=== PATIENT | female | born 1990 | race Caucasian/White ===

== ENCOUNTER 2018-03-27 10:05 | Observation (INO) | payer MEDICAID ==
[~2018-03-27] VITALS: Ht 154.9 cm; Wt 81.6 kg
[2018-03-27 10:09] VITALS: Ht 154.9 cm; Wt 81.6 kg
[2018-03-27 10:42] LABS: APPEARANCE HAZY (CLEAR); BACTERIA FEW /hpf (NONE SEEN); BILIRUBIN NEGATIVE (NEGATIVE); COLOR YELLOW (YELLOW); EPITHELIAL CELLS 0-5 /hpf (0-5); GLUCOSE NEGATIVE (NEGATIVE); KETONE NEGATIVE (NEGATIVE); MUCUS <1+ /lpf (NONE SEEN); NITRITE NEGATIVE (NEGATIVE); PROTEIN NEGATIVE (NEGATIVE); SPECIFIC GRAVITY 1.005 (1.005-1.020); UROBILINOGEN NORMAL (NORMAL); WHITE CELLS - URINE OCC /hpf (0-5)
[2018-03-27 10:49] LABS: HEMATOCRIT 38.2 % (36.0-48.0); LYMPHOCYTES 36.6 % (15-50); MCH 27.6 pg (26.0-34.0); MCV 81.1 fL (80.0-100.0); NEUTROPHILS 55.4 % (40-80); PLATELET COUNT 171 10x3/uL (130-400); RBC 4.71 10x6/uL (4.00-5.40); RDW 13.5 % (11.5-14.5); WBC 3.9 10x3/uL (4.8-10.8)
[2018-03-27 10:55] LABS: ALBUMIN 3.7 g/dL (3.4-5.0); ALKALINE PHOSPHATASE 54 U/L (46-116); ALT (SGPT) 21 U/L (10-68); BILIRUBIN - TOTAL 0.35 mg/dL (0.2-1.3); CALC OSMOLALITY 276 mosm/kg (275-300); CALCIUM 8.6 mg/dL (8.5-10.1); CARBON DIOXIDE 22.9 mmol/L (21.0-32.0); CHLORIDE - SERUM 105 mmol/L (98-107); CREATININE - SERUM 0.5 mg/dL (0.6-1.3); GLUCOSE 92 mg/dL (74-106); PROTEIN - SERUM 7.3 g/dL (6.4-8.2); SODIUM 140 mmol/L (136-145); UREA NITROGEN 8 mg/dL (7-18); eGFR NON AFRICAN AMERICAN > 90 mL/min (90-120)
[2018-03-27 10:57] LABS: POTASSIUM - SERUM 4.4 mmol/L (3.5-5.1)
[2018-03-27 11:21] LABS: HCG - QUANTITATIVE (MATERNAL) 2690 mIU/mL
--- NOTE | 2018-03-27 14:23 | NUR ---
RECEIVED PT FROM VIA WHEELCHAIR TO ROOM 1273. PT C/O N/V. EMESIS BASIN PROVIDED.
--- NOTE | 2018-03-27 14:25 | NUR ---
PT ASSISTED WITH CHANGING INTO GOWN. PT TO BED. VS OBTAINED. PT STATES LEFT TO CARE FOR CHILDREN. 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 STATES C/O ABDOMINAL PAIN OF "5" ON 0-10 PAIN SCALE. PERIPAD CHANGED WITH SMALL AMT OF DARK RED DISCHARGE NOTED. HRRR WITHOUT AUDIBLE MURMUR. BBS CLEAR. BS X 4. ABDOMEN SOFT. NEG HOMANS' SIGN. PPP. NO EDEMA NOTED TO EXTREMETIES. PIV OF LR INFUSING AT 150 ML/HR TO LEFT AC. SITE CLEAR. PT ORIENTED TO ROOM, BED, AND CALL LIGHT. SR UPX 2. CALL LIGHT IN REACH.
[2018-03-27 14:30] VITALS: BP 129/78
--- NOTE | 2018-03-27 15:31 | NUR ---
PT TO OR VIA WHEELCHAIR PER OR TRANSPORT STAFF.
--- NOTE | 2018-03-27 16:45 | NUR ---
DR ELIAS ON UNIT. SPEAKS WITH PATIENT'S FAMILY. ORDERS RECEIVED.
[2018-03-27 17:17] VITALS: BP 125/68
--- NOTE | 2018-03-27 17:17 | NUR ---
RECEIVED PT FROM VIA STRETCHER TO ROOM 1273. PT TRANSFERS ONTO BED PER SELF. VSS. PT AWAKE. HRRR WITHOUT AUDIBLE MURMUR. BBS CLEAR. BS X 4. ABDOMEN SOFT/NON-DISTENDED. SMALL SEROSANGUINOUS DISCHARGE NOTED ON CHUX. NEG HOMANS' SIGN. PPP. NO EDEMA NOTED TO BLE. PIV OF LR INFUSING AT KVO RATE. SITE CLEAR TO LEFT AC. PT STATES ABDOMINAL PAIN OF "7" ON 0-10 PAIN SCALE. SR UP X 2. CALL LIGHT IN REACH.
--- NOTE | 2018-03-27 17:25 | NUR ---
TORADOL 30 MG GIVEN SIVP OVER 2 MINUTES. PT INSTRUCTED ON MED. VERBALIZES UNDERSTANDING.
[2018-03-27 17:44] VITALS: BP 110/56
[2018-03-27] MEDS ORDERED: PRENAVITE1 TAB PO (17:44)
--- NOTE | 2018-03-27 18:00 | NUR ---
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 PT TOLERATING MEAL WITHOUT C/O NAUSEA. STATES PAIN IMPROVED. DISCHARGE INSTRUCTIONS GIVEN TO PT. PT VERBALIZES UNDERSTANDING OF ALL INSTRUCTIONS. COPIES GIVEN TO PT. PT DUE TO VOID PRIOR TO DISCHARGE AND PT VERBALIZES UNDERSTANDING TO NOTIFY NURSE OF NEED TO VOID.
--- NOTE | 2018-03-27 18:00 | NUR ---
COPIES OF DISCHARGE INSTRUCTIONS IN [place] GIVEN TO PT.
--- NOTE | 2018-03-27 19:10 | NUR ---
BEDSIDE REPORT DONE WITH JEANETTE HOANG AT THIS TIME. PATIENT DENIES NEEDS AND UNDERSTANDS THAT SHE WILL BE DISCHARGED TO HOME SOON SHE IS ABLE TO VOID. PATIENT DINNER TRAY WITH 75% EATEN AT THIS TIME WITHOUT INCIDENT. WILL CONTINUE TO MONITOR.
[2018-03-27 20:45] VITALS: BP 137/60
--- NOTE | 2018-03-27 20:45 | NUR ---
PATIENT VOIDED 1000ML CLEAR YELLOW URINE WITHOUT DIFFICULTY, PAD AND PANTIES CHANGED, BLEEDING NOTED TO BE SMALL ON PREVIOUS PAD. PATIENT IV D/C'D WITHOUT INCIDENT, PRESSURE AND BANDAID APPLIED. PATIENT CHANGING INTO HER OWN CLOTHES TO DISCHARGE TO HOME.
--- NOTE | 2018-03-27 20:45 | NUR ---
PATIENT ASSISTED UP TO BATHROOM AT THIS TIME.
--- NOTE | 2018-03-27 20:55 | NUR ---
PATIENT DISCHARGED TO HOME IN STABLE CONDITION WITH FAMILY AT THIS TIME. DECLINES WHEELCHAIR. PT HAS ALL OF HER DISCHARGE PAPERS FROM [facility] AND PATIENTS FAMILY STATES THAT SHE HAS NO QUESTIONS. PT UNDERSTANDS TO GO TO HER FOLLOW UP APPT APR 13.
--- NOTE | 2018-03-29 08:23 | OP ---
PATIENT NAME: ADEN CHÁVEZ MEDICAL RECORD: [id number] :92 LOCATION:[id number] ADMISSION DATE:03/27/18 SURGEON: JOSE ELIAS ELIAS MD DATE OF OPERATION: 03/27/2018 PREOPERATIVE DIAGNOSIS: Inevitable . POSTOPERATIVE DIAGNOSIS: Inevitable . PROCEDURE: Suction D&C. SURGEON: Jose Elias Elias MD EARTH SCIENCE PROFESSOR: Sukhdev Hopkins. ANESTHESIOLOGIST: Dr. Solano. ANESTHETIC: General. FINDINGS: Cervical os is open. Vaginal vault unremarkable. There is blood at the os. The uterus is approximately 10-week size, copious amounts of products of conception returned at the time of suction D&C. SPECIMEN REMOVED: Products of conception. SPECIMEN DISPOSITION: Pathology. ESTIMATED BLOOD LOSS: Less than or equal to 100 cc. FLUIDS: 800 cc of normal saline. URINE OUTPUT: Quantity sufficient void prior to the procedure. COMPLICATIONS: None. DRAINS: None. INDICATIONS: The patient is a 27-year-old female who presents to the Emergency Room with heavy bleeding and found to have an open cervix. Ultrasound shows crown-rump length of 8 weeks lagging behind dates without cardiac activity. The patient is consented for an evacuation for inevitable . DESCRIPTION OF PROCEDURE: After informed consent was assured, the patient was taken to the operating room where anesthetic is obtained. The patient was placed in the stirrups. The patient is now prepped and draped and a speculum introduced. The cervix is grasped with a tenaculum and the cervix is found to be dilated to easily accommodate an 8 curved suction curette. This curette was passed to the fundus and suction was applied at 7 mmHg. Products of conception removed on several passes. Some residual tissue was removed with curettage. After curettage was performed and good cry was obtained throughout. A single pass with the suction device removed all remaining clot and debris. Sponge, lap, needle counts were correct times 2 as a single tooth tenaculum is removed from the cervix. Ring forceps was applied here for hemostasis. The patient tolerated the procedure and went to the recovery area in stable condition. OPERATIVE REPORT [id number] ADEN CHÁVEZ TRANSINT:[id number] Voice Confirmation ID: [id number] DOCUMENT ID: [id number] JOSE ELIAS ELIAS MD at 0823 CC: [id number] DICTATION DATE: 03/27/18 1639 INSTRUMENT AND CONTROLS TECHNICIAN: 03/27/18 2149 DIS IN 03/27/18 [facility] [address] [id number]
== END 2018-03-27 20:55 | disposition home or self-care (01) ==
LOC: D.ER 10:05 → OBSVTIME 13:11 → D.LD 13:11
PROVIDERS: Family Medicine; ADMIT Obstetrics & Gynecology
DX: O02.1 Missed abortion (principal)